=== PATIENT | male | born 2000 | race Caucasian/White ===

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

== ENCOUNTER 2022-04-18 18:20 | Emergency (ER) | payer OTHER ==
[~2022-04-18] VITALS: Ht 175.3 cm; Wt 99.8 kg
[2022-04-18] MEDS ORDERED: AUGMENTIN 500-1 EACH PO (19:34)
[2022-04-18] MEDS ORDERED: BACTRIM DS TAB1 EACH PO (19:34)
[2022-04-18] MEDS ORDERED: CEFTRIAXONE 1 GM VIAL IM ONE (19:45)
== END 2022-04-18 20:15 | disposition home or self-care (01) ==
LOC: FSED 18:53
DX: L03.116 Cellulitis of left lower limb (principal); L03.115 Cellulitis of right lower limb
CPT/HCPCS: 36415; 82948; 99283; J0696